=== PATIENT | male | born 2005 | race Caucasian/White ===

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

== ENCOUNTER 2025-02-19 15:42 | Emergency (ER) | payer MEDICAID ==
[~2025-02-19] VITALS: Ht 165.1 cm; Wt 65.0 kg
[~2025-02-19 15:42] MED LIST: DEXT354L PO; PHEN-748 PO
[2025-02-19 15:49] VITALS: BP 125/76; PULSE 89; RESP 18; TEMP 98.4; O2SAT 97
== END 2025-02-19 16:20 | disposition home or self-care (01) ==
LOC: EMS 15:42
DX: B00.9 Herpesviral infection, unspecified (principal); Z79.899 Other long term (current) drug therapy
CPT/HCPCS: 99281; 99282; Z7502